=== PATIENT | male | born 1965 | race Caucasian/White ===

== ENCOUNTER 2018-05-17 20:50 | Emergency (ER) | payer OTHER, SELFPAY ==
--- NOTE | 2018-05-17 20:57 | DI.RAD.S_ITS ---
PROCEDURE: XR WRIST LT MIN 3V INDICATIONS: fall and LEFT WRIST deformity TECHNIQUE: 3 views of the wrist were acquired. COMPARISON: None. FINDINGS: Bones: Comminuted moderately displaced fracture of the distal radius with articular surface extension to the radiocarpal joint. Mild posterior angulation. Mildly displaced comminuted fracture of the distal ulna. Scaphoid view: Not requested Soft tissues: No suspicious soft tissue calcifications. IMPRESSION: Distal radial and ulnar fractures as above. Dictated by: Maryam Ochoa M.D. on 05/17/2018 at 21:24 Approved by: Maryam Ochoa M.D. on 05/17/2018 at 21:25
[2018-05-17 20:58] VITALS: BP 122/85; PULSE 96; RESP 20; TEMP 36.6; O2SAT 96; BMI 35.7
[2018-05-17 21:20] VITALS: PULSE 94
[2018-05-17] MEDS: MORPHINE 4 MG/ML INJ SUBCUT (22:12)
[2018-05-17 22:18] VITALS: BP 127/88; PULSE 79; RESP 17; O2SAT 100
[2018-05-17 22:19] VITALS: BP 127/88; PULSE 80; RESP 20; O2SAT 95
--- NOTE | 2018-05-17 23:04 | ED_ITS ---
HPI - Extremity Injury (Upper) General Chief Complaint: Extremity Injury, Upper Stated Complaint: LEFT WRIST INJURY Time Seen by Provider: 05/17/18 23:02 Source: patient Mode of arrival: ambulatory Limitations: no limitations History of Present Illness HPI narrative: The patient was rollerblading at a local skating rink prior to arrival. He was not wearing his wrist protectors. He fell on outstretched left hand. There is no head, neck or torso injury. Is right-hand dominant. He complains only of left wrist pain. He was up and ambulatory without other pain. He is right-hand dominant. He notes deformity of the left wrist. There is no numbness or tingling in the left hand. Related Data Previous Rx's Medication Instructions Recorded colchicine 0.6 mg capsule 0.6 mg PO DAILY PRN #60 cap 02/21/18 indomethacin 50 mg capsule 50 mg PO TID #20 cap 02/21/18 hydrocodone-acetaminophen [Sapello] 1 tab PO Q4H PRN #14 tab 05/17/18 Allergies Allergy/AdvReac Type Severity Reaction Status Date / Time No Known Drug Allergies Allergy Verified 11/22/17 10:27 Review of Systems Constitutional Denies chills, Denies fever(s), Denies lethargy and Denies weakness Musculoskeletal Denies back pain, Denies muscle weakness, Denies numbness, Denies tingling and Reports other (Left wrist pain and swelling) Integumentary/Breasts Denies erythema, Denies rash and Reports wounds Neurologic Denies numbness, Denies tingling and Denies weakness PFSH Medical History No chronic problems (Acute) Surgical History No pertinent past surgical history (Acute) Social History Smoking Status: Former smoker substance use type: marijuana Social History Smoking Status: Former smoker substance use type: marijuana Exam Initial Vital Signs Initial Vital Signs: Vital Signs Temperature 97.9 F 05/17/18 20:58 Pulse Rate 96 H 05/17/18 20:58 Respiratory Rate 20 05/17/18 20:58 Blood Pressure 122/85 05/17/18 20:58 Pulse Oximetry 96 05/17/18 20:58 Const General: cooperative and well developed Nutritional Appearance: well nourished Orientation: alert, awake, oriented x3 and not confused Neck Neck: full ROM and No tender Back/Spine/Pelvis Cervical Spine: cervical ROM normal Thoracic/Lumbar Spine: thoracic and lumbar spine normal to inspection Skin General: no rashes or lesions noted Neuro General: alert, oriented x3 and no focal motor deficits Other: The left arm which is injured has normal motor and sensory findings. Extrem Other: No tenderness to the left shoulder, elbow or elbow. He has a dorsal deformity to left wrist. He has range of motion at the left wrist. There is normal flexion extension in all digits. Procedures Orthopedic Splinting/Casting Injury #1: Side: left Upper Extremity Injury Location: wrist Upper Extremity Immobilizer: sugar tong splint Post splinting neuro exam: intact Post splinting vascular exam: intact Placed by: Provider Course Orders Ordered: Discontinued Medications Hydrocodone Bitart/Acetaminophen (Vicodin Prepack) 1 bottle MISC SEEINSTR ONE Stop: 05/17/18 23:13 Last Admin: 05/17/18 23:18 Dose: 1 bottle Morphine Sulfate (Morphine) 4 mg SUBCUT NOW ONE Stop: 05/17/18 22:12 Last Admin: 05/17/18 22:12 Dose: 4 mg Vital Signs - 8 hr 05/17/18 23:30 Pulse Rate 76 Respiratory Rate 20 Blood Pressure [Right Arm] 118/72 Pulse Oximetry 96 MDM - Extremity Injury (Upper) Imaging Data Left wrist XR:: Radiologist's impression: [address] [address] XRay Report Signed Patient: Randolph Tipton RMR#: [id number] : 1965Acct:[id number] Age/Sex: 53 / MDate of Service: 05/17/18 Loc: ED Accession Number: [id number] Procedure: XR wrist LT min 3V Ordering Provider: Conrado Palomares M.D. PROCEDURE: XR WRIST LT MIN 3V INDICATIONS: fall and LEFT WRIST deformity TECHNIQUE: 3 views of the wrist were acquired. COMPARISON: None. FINDINGS: Bones: Comminuted moderately displaced fracture of the distal radius with articular surface extension to the radiocarpal joint. Mild posterior angulation. Mildly displaced comminuted fracture of the distal ulna. Scaphoid view: Not requested Soft tissues: No suspicious soft tissue calcifications. IMPRESSION: Distal radial and ulnar fractures as above. Dictated by: Maryam Ochoa M.D. on 05/17/2018 at 21:24 Approved by: Maryam Ochoa M.D. on 05/17/2018 at 21:25 Discharge Plan Departure Patient Disposition: Home Clinical Impression: Closed fracture of distal ends of left radius and ulna Qualifiers: Encounter type: initial encounter Qualified Code(s): S52.502A - Unspecified fracture of the lower end of left radius, initial encounter for closed fracture Discharge Date/Time: 05/18/18 00:02 Interventions: ED Discharge Assessment Last Done: 05/18/18 00:08 Instructions: DI for Wrist Fracture Activity Restrictions/Additional Instructions: Keep the arm in a splint, use the sling. Sapello every 6 hr as needed for pain. Follow-up with Orthopedics, Dr. Ma is the on-call doctor. I will give you contact information. Call for an appointment. Prescriptions: New hydrocodone-acetaminophen [Sapello] 5-325 mg tablet 1 tab PO Q4H PRN (Reason: pain) Qty: 14 RF: 0 No Action colchicine 0.6 mg capsule 0.6 mg PO DAILY PRN (Reason: gout flare) Qty: 60 RF: 0 indomethacin 50 mg capsule 50 mg PO TID Qty: 20 RF: 0 Referrals: Tia Maxwell ARNP [Primary Care Provider] - Onofre Ma MD [Physician] -
[2018-05-17] MEDS: HYDROCODONE/ACET 5/325 PREPACK 1 BOTTLE MISC (23:18)
[2018-05-17 23:30] VITALS: BP 118/72; PULSE 76; RESP 20; O2SAT 96
== END 2018-05-18 00:02 | disposition home or self-care (01) ==
PROVIDERS: Emergency Provider Emergency Medicine; PCP Internal Medicine
DX: S52.502A Unspecified fracture of the lower end of left radius, initial encounter for closed fracture (principal); W18.39XA Other fall on same level, initial encounter; Y93.51 Activity, roller skating (inline) and skateboarding; Y92.331 Roller skating rink as the place of occurrence of the external cause
CPT/HCPCS: 29125; 73110; 99283; 99284; J2270

== ENCOUNTER → 2018-05-19 13:20 | Outpatient (CLI) | payer OTHER, SELFPAY ==
--- NOTE | 2018-05-19 | DI.CT.S_ITS ---
PROCEDURE: CT UE LT WO CON INDICATIONS: DISTAL RADIUS FRACTURE OF LEFT WRIST TECHNIQUE: Noncontrast 1 mm axial sections acquired through the carpal bones, with coronal and sagittal reformats. COMPARISON: [facility], CR, XR WRIST LT MIN 3V, 05/17/2018, 21:00. FINDINGS: Image quality: Excellent. Bones: As was seen during plain film imaging of the wrist 05/17/18 there is a complex comminuted impacted and prominently displaced set of fracture planes involving the distal radius. Comminuted fractures involve the articular surface also of the distal ulna, but these fractures remain in near-anatomic alignment. The fractures of the distal radius show impaction and resultant displacement of the fracture margins peripherally in all planes. Soft tissues: No hematoma found. IMPRESSION: Extensively comminuted intra-articular impacted and prominently displaced fracture planes involving the distal radius. Comminuted stellate fracture involves the distal ulna including the articular surface but these fractures are only minimally displaced. A carpal fracture is not found. Dictated by: Castro Bentley M.D. on 05/19/2018 at 14:12 Approved by: Castro Bentley M.D. on 05/19/2018 at 14:14
== END ==
PROVIDERS: PCP Nurse Practitioner Family; Visit Provider Orthopaedic Surgery
DX: S52.572A Other intraarticular fracture of lower end of left radius, initial encounter for closed fracture (principal); S52.692A Other fracture of lower end of left ulna, initial encounter for closed fracture
CPT/HCPCS: 73200